=== PATIENT | male | born 1970 | race Caucasian/White ===

== ENCOUNTER 2016-03-26 19:15 | Emergency (ER) | payer OTHER ==
[2016-03-26 19:33] VITALS: BP 131/86; PULSE 92; TEMP 98.4; BMI 26.1
--- NOTE | 2016-03-26 19:42 | EDPRACDOC ---
ED Hip Problem HPI - General Information Chief Complaint: Hip Pain Stated Complaint: LEFT HIP PAIN Time Seen by Provider: 03/26/16 19:36 Home Medications: Home Medications Cyclobenzaprine HCl [Flexeril] 10 mg PO TID PRN #20 tablet 03/26/16 Hydrocodone Bit/Acetaminophen [Hydrocodon-Acetaminophen 5-325] 1 tab PO Q6 PRN # 20 tab 03/26/16 Prednisone [Deltasone, Orasone] 40 mg PO DAILY 5 Days 03/26/16 - History of Present Illness Onset: FRIDAY HPI: PT COMPLAINS OF SHARP, STABBING PAIN IN LEFT LATERAL HIP, WORSENING SINCE FRIDAY , NO KNOWN INJURY, STATES PAIN IS WORSE WITH MOVEMENT AND WEIGHT BEARING. PT DENIES BACK PAIN, NO NUMBNESS OR TINGLING OF EXTREMITY Hip Problem Location: Reports: Left, Lateral Mechanism: Reports: No Trauma Circumstances: Reports: Unknown Relevant History: Reports: None Able to Bear Weight: Limited Pain Severity: Severe Associated Signs & Symptoms: Denies: Fever, Abrasion, Laceration, Thigh Pain, Knee Pain, Back Pain ED Past Medical History - History Reviewed Yes Nurses notes reviewed and agree except as marked No Past Medical History: Yes Patient has no past medical history - Social Medical History Smoking Status: Never smoker ETOH: None Substance Abuse: None EDM Review of Systems - Review of Systems Constitutional: negative: Chills, Fever Genitourinary: negative: Dysuria, Frequency Neurological: negative: Dizziness, Headache, Numbness, Weakness Musculoskeletal: Hip Integumentary: No Symptoms Reported - Physical Exam Constitutional: Alert (Awake), No apparent distress Oriented to: Time, Person, Place Last recorded Vital Signs: Last Vital Signs Temp 98.4 F 03/26/16 19:32 Pulse 92 03/26/16 19:32 Resp 20 03/26/16 19:32 BP 131/86 03/26/16 19:32 Pulse Ox 98 03/26/16 19:32 Oxygen Pulse Oxygen Saturation 98 O2 Device Room Air Oxygen Flow Rate Fraction of Inspired Oxygen ( FIO2) - HEENT Head: Normal ( normocephalic) - Integumentary Skin: Normal, Warm, Dry Lymphatics: Normal (no adenopathy) - Neurologic Memory Impaired: Normal Motor Function: Normal (Normal tone, Pulses 2+ No cyanosis or edema, FROM) Cranial Nerve: Normal (CN II-X11 intact sensation, strength 5/5) Cerebellar: Normal Mood Description: Normal Perception: Normal ED Hip Problem Physical Exam - Musculoskeletal Hip: Limited ROM (PAIN WITH EXTERNAL AND INTERNAL ROTATION), Moderate tenderness (LATERALLY). negative: Swelling, Deformity Hip Deformity: Normal Pelvis: Normal Thigh: Normal Back: Normal Distal Function/Circulation: Normal, Capillary Refill. negative: Motor Deficit , Pulse Deficit, Sensory Deficit - Differential Diagnosis DJD arthritis, Septic arthritis, Bursitis Decision Time to Discharge: 19:43 - Departure Disposition: Home Condition: Stable Final Diagnosis: Bursitis of left hip Instructions: Hip Bursitis (ED) Education/Counseling Given To: Patient Education/Counseling Given Regarding: Diagnosis, Treatment, Prognosis, Follow Up Referrals: Venkat Doan MD [Staff Physician] - One Week Prescriptions: Cyclobenzaprine HCl [Flexeril] 10 mg PO TID PRN #20 tablet PRN Reason: Muscle Spasms Hydrocodone Bit/Acetaminophen [Hydrocodon-Acetaminophen 5-325] 1 tab PO Q6 PRN # 20 tab PRN Reason: Pain Prednisone [Deltasone, Orasone] 40 mg PO DAILY 5 Days Forms: Excuse Note Additional Instructions: APPLY WARM COMPRESSES TO AFFECTED AREA 20 MINS AT A TIME 4 - 5 TIMES DAILY NEEDED FOR PAIN
== END 2016-03-26 19:54 | disposition home or self-care (01) ==
LOC: EDMC 19:15
DX: M71.9 Bursopathy, unspecified (principal)
CPT/HCPCS: 99282